=== PATIENT | female | born 1995 | race Caucasian/White ===

== ENCOUNTER 2019-02-25 12:23 | Outpatient (CLI) | payer OTHER, SELFPAY ==
[~2019-02-25] VITALS: Ht 157.5 cm; Wt 77.6 kg
[2019-02-25] MEDS ORDERED: FERR325T81 PO (12:41)
[2019-02-25] MEDS ORDERED: PRESCAP4 PO (12:41)
[2019-02-25 12:46] VITALS: BP 109/56
[2019-02-25] MEDS ORDERED: TERBUTALINE SULFATE 1 MG/ML VIAL (J3105) As Ordered ONE (13:08)
[2019-02-25] MEDS ORDERED: TERBUTALINE SULFATE 1 MG/ML VIAL (J3105) SC ONE (13:15)
[2019-02-25] MEDS ORDERED: LACTATED RINGER'S 1000 ML IV STA (14:41)
[2019-02-25 14:42] VITALS: BP 122/79
--- NOTE | 2019-02-25 14:50 | IPNPDOC ---
Text Note Date of Service The patient was seen on 02/25/19. NOTE ECV Note Ceci is a 23yo with SIUP at approx 37w1d by lmp c/w 9wk u/s who presents for scheduled ECV for breech presentation noted on office ultrasound at 36wk visit. She feels well today with no ctx/LOF/vaginal bleeding. Feels good movement. She has been NPO since before midnight. Patient counseled on r/b/a of ECV, discussed fully and consent form signed by patient and me. Consent placed in chart. All questions answered. 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 CNM Alec and I then externally rotated the fetus from breech to cephalic presentation. We tried forward roll first, but unsuccessful, so then attempted backward roll which worked to rotate the fetus. Ultrasound was used intermittently to demonstrate reassuring heart rate. Patient tolerated the procedure well. Reassuring heart rate after procedure. Assessment: Ceci is a 23yo with SIUP at approx 37w1d by lmp c/w 9wk u/s s/p successful ECV. Fetus now cephalic. Vitals wnl. Reassuring status. Plan: -Patient will have 1 hour of reassuring monitoring prior to discharge -1 liter bolus of LR IVF now to counter NPO status since last night -Regular diet for lunch now -Continue routine OB visits -Return precautions discussed Dr. Alejandra Martinez MD VS,Kartik, I+O VS, Allene, I+O Vital Signs Date Time Temp Pulse Resp B/P (MAP) Pulse Ox O2 Delivery O2 Flow Rate FiO2 02/25/19 12:46 97.2 83 16 109/56 (73) Alejandra Martinez MD Feb 25, 2019 14:08
== END 2019-02-25 16:00 | disposition home or self-care (01) ==
LOC: M LDO 12:23
PROVIDERS: ATTEND Advanced Practice Midwife
DX: O32.1XX0 Maternal care for breech presentation, not applicable or unspecified (principal); Z3A.37 37 weeks gestation of pregnancy
CPT/HCPCS: 59025; 59412; 76815; G0378; G0463; J3105

== ENCOUNTER 2019-03-24 06:09 | Inpatient (IN) | payer OTHER ==
[~2019-03-24] VITALS: Ht 157.5 cm; Wt 80.0 kg
[2019-03-24] VITALS (32 sets, daily range): BP systolic 96–143; BP diastolic 51–85
[~2019-03-24 06:09] MED LIST: FERR325T81 PO; PRESCAP4 PO
[2019-03-24] MEDS ORDERED: PRENTAB9 PO (06:25)
[2019-03-24] MEDS ORDERED: LACTATED RINGER'S 1000 ML IV STA (07:10)
[2019-03-24 07:12] LABS: HEMATOCRIT 42.9 % (36.0-47.0); HEMOGLOBIN 14.8 g/dl (12.0-15.5); MEAN CORPUSCULAR HEMOGLOBIN 30.3 pg (27.0-33.0); MEAN CORPUSCULAR HGB CONC 34.5 g/dl (32.0-36.5); MEAN CORPUSCULAR VOLUME 87.7 fl (80.0-96.0); PLATELET COUNT, AUTOMATED 242 10^3/uL (150-450); RED BLOOD COUNT 4.89 10^6/uL (4.00-5.40)
--- NOTE | 2019-03-24 07:48 | HPEPDOC ---
Obstetrical History & Physical General Date of Admission Mar 24, 2019 at 06:09 History of Present Illness 23 yo at 41+0 weeks gestation by LMP of 10Jun2018 c/w 9+4 week US on 13Aug2018 presents to L&D today for a scheduled IOL for late term . Ms. Avelar reports feeling well. She has had intermittent contractions but nothing significant. She denies any vaginal bleeding or leakage of fluid. She endorses excellent movement. Chief Complaint: Induction of labor Information Provided By: Patient Age: 23 : 3 Term: 1 Pre-term: 0 Abortions: 1 Livin Care Care: Good Care Dating Final EDC: Mar 17, 2019 Final EDC for Daily Update: Mar 17, 2019 Final EDC by: LMP (MARC set by LMP of 10Jun2018) LMP: Jun 10, 2018 1st Trimester Date: Aug 13, 2018 (9+4 week US on 13Aug2018 c/w LMP dating) Antepartum Course Diagnos(e)s Mild anemia --> ferrous sulfate Fam Hx of DM --> Normal glucose screening Fetus breech at 36 weeks --> s/p successful ECV on 25Feb2019 Past Medical History Past Obstetrical History : Past Obstetrical History: Multigravida ( X1 in 2016 at 41 weeks, pelvis proven to 9lbs) Type of Delivery: Spontaneous Vaginal Del. 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 Past Medical History Medical History Migraines Surgical History: Denies/None Family History Significant Family History: No pertinent family hx Social History Marital Status: Family situation: Spouse/partner home Psychosocial History: No pertinent psych hx * Smoker: non-smoker Alcohol: Denies Drugs: denies Imunizations Tdap status: current Influenza Status: current Allergies Coded Allergies: Shrimp (Verified Adverse Reaction, Intermediate, scratchy throat, 02/25/19) Medications Scheduled Ferrous Sulfate (Iron) 325 Mg Tablet, 1 TAB PO BID No.137/Iron/Folic Acd ( Vitamin Tablet) 1 Each Tablet, 1 TAB PO DAILY Vit C/Vit E AC/Lut/Copper/Zinc (Preservision Lutein Softgel) 1 Each Capsule, 1 CAP PO BID Physical Examination Physical Examination GENERAL: Alert and oriented times three. ABDOMEN: Gravid and non-tender to touch. FETUS: Is vertex (VTX) by sterile vaginal examination (SVE) EXTREMITIES: No edema. Vital Signs/I&O Vital Signs Date Time Temp Pulse Resp B/P (MAP) Pulse Ox O2 Delivery O2 Flow Rate FiO2 03/24/19 07:07 97.4 81 16 135/74 (94) Laboratory Data 24H LABS Laboratory Tests 2 03/24/19 06:16: Serology Scanned Report Hepatitis B Testing 03/24/19 06:55: Nucleated Red Blood Cells % (auto) 0.0 CBC/BMP Laboratory Tests 03/24/19 06:55 Red Blood Count 4.89, Mean Corpuscular Volume 87.7, Mean Corpuscular Hemoglobin 30.3, Mean Corpuscular Hemoglobin Concent 34.5, Red Cell Distribution Width 16.4 H Urine Culture: No Growth Pertinent Laboratoy Data Blood Type: O+ RBC Antibody Screen: Negative HIV: Negative Hepatitis B: Negative Hepatitis C: Unknown Rapid Plasma Reagin: Nonreactive Rubella: Immune Varicella: Immune Chlamydia/Gonorrhea: Negative Group B Streptococcus: Negative Quad Screen Test: Unknown Cystic Fibrosis: Unknown Glucose Tolerance Test: 109 Anatomy Ultrasound Placenta Location: Posterior Normal Anatomy: Yes Placenta Previa: No Steroid Therapy Steroid Therapy: No Vaginal Examination Dilation: 3 cm Effacement: 60% Station: -2 Cervical Consistency: Soft Cervical Position: Middle Presentation: Cephalic presentation Position: Vertex (occiput) Assessment Heart Rate (FHR): 140 Variability: Moderate Accelerations: Positive Decelerations: None Tocometer Contractions: Yes Frequency: irregular Duration: less than 60 seconds Strength: palpated as mild Assessment/Plan Assessment 23 yo at 41+0 weeks today presents to L&D for IOL for late term . Plan Admit to L&D for IOL. Apply IV fluids. GBS negative. Cervix favorable. Will use pitocin for IOL. Regular breakfast before start. Fetus cephalic by exam. Patient may have epidural when desired. Anticipate . All questions answered. DO ASIF Vasquez CHRISTOPHER J. DO Mar 24, 2019 07:48
[2019-03-24] MEDS ORDERED: OXYTOCIN DRIP 30 UNITS in IV 1 EA IV SCH ×2 (08:00→15:47)
[2019-03-24] MEDS ORDERED: LR 1,000 ML IV SCH (08:00)
[2019-03-24] MEDS ORDERED: FENTANYL 2MCG/ML ROPIVACAINE 0.2% IN 0.9% NACL 100ML IVBAG As Ordered ONE (09:53)
[2019-03-24] MEDS ORDERED: ONDANSETRON 4MG/2ML VIAL (J2405) IV PRN (11:00)
[2019-03-24] MEDS ORDERED: NALOXONE INJ 0.4 MG/1 ML VIAL (J2310) IV PRN (11:00)
[2019-03-24] MEDS ORDERED: EPIDURAL COMMENT XX SCH (11:00)
[2019-03-24] MEDS ORDERED: LACTATED RINGER'S 1000 ML IV PRN (11:00)
[2019-03-24] MEDS ORDERED: FENTANYL/ROPIVACAINE/NACL BAG 100 ML EPIDURAL SCH (11:00)
[2019-03-24] MEDS ORDERED: ePHEDrine SULFATE 25 MG/5 ML(5MG/ML) SYRINGE IV PRN (11:00)
[2019-03-24] MEDS ORDERED: REFRIGERATOR IV KEYS XX PRN (11:00)
[2019-03-24] MEDS ORDERED: EPIDURAL/PCA KEYS XX PRN (11:00)
[2019-03-24] MEDS ORDERED: diphenhydrAMINE INJ 50MG/ML VIAL (J1200) IV PRN (11:00)
--- NOTE | 2019-03-24 14:30 | IPNPDOC ---
Text Note Date of Service The patient was seen on 03/24/19. NOTE Presented to room for assessment of progress. Patient comfortable with epidural in place. Cervix: C/C/+1. bulging bag of water. AROM performed productive of clear fluid. FHR Cat I. Pitocin at 8mU. Will begin pushing soon. DO Abhinav VS,Kartik, I+O VS, Kartik, I+O Laboratory Tests 03/24/19 06:55 Red Blood Count 4.89, Mean Corpuscular Volume 87.7, Mean Corpuscular Hemoglobin 30.3, Mean Corpuscular Hemoglobin Concent 34.5, Red Cell Distribution Width 16.4 H Vital Signs Date Time Temp Pulse Resp B/P (MAP) Pulse Ox O2 Delivery O2 Flow Rate FiO2 03/24/19 12:40 79 96/52 (67) 03/24/19 11:23 97.1 18 JUAN GOLD DO Mar 24, 2019 14:30
[2019-03-24 15:48] LABS: CORD GAS HCO3 A 20.1 MEQ/L; CORD GAS O2 SAT A 47.5 %; CORD GAS PCO2 A 55.9 mmHg; CORD GAS PH A 7.173 UNITS; CORD GAS PO2 A 26.7 mmHg; CORD GAS SBC A 16.3 MEQ/L; CORD GAS TCO2 A 21.8 MEQ/L
[2019-03-24 15:51] LABS: CORD GAS ABE V -6.5; CORD GAS HCO3 V 22.5 MEQ/L; CORD GAS O2 SAT V 57.5 %; CORD GAS PCO2 V 58.1 mmHg; CORD GAS PH V 7.205 UNITS; CORD GAS PO2 V 30.3 mmHg; CORD GAS SBC V 18.3 MEQ/L; CORD GAS TCO2 V 24.2 MEQ/L
--- NOTE | 2019-03-24 15:57 | DNPDOC ---
[facility] Delivery Note Delivery Note DATE OF DELIVERY: 24Mar2019 at ~1515 PREDELIVERY DIAGNOSIS: 41+0 weeks gestation and IOL for late term POST DELIVERY DIAGNOSIS: Delivered. PROCEDURE: Spontaneous vaginal delivery FLOOR MOLDER: Dr. La ANESTHESIA: Epidural ESTIMATED BLOOD LOSS: 300 mL. FINDINGS: Viable female , 10lbs 5oz (4670 grams), Apgars 8/9, tight nuchal cord X2 DELIVERY SUMMARY: Presented to room to start pushing. head was at +2 station. FHR was in the 90s. She began pushing and with excellent effort her delivered. presentation was DREW with restitution to ROT. There was a tight, double nuchal cord that was delivered through and reduced manually. The left anterior shoulder delivered with gentle traction followed easily by the remainder of the body. The infant was dried and stimulated on the field and a bulb suction was used. The was then placed on the maternal abdomen and cried vigorously. The three vessel cord was then clamped and cut by me after appropriate time delay. Cord blood gases were drawn. Third stage was then completed with gentle traction on the cord and it was productive of an intact placenta. The uterine fundus was firmed with massage and pitocin was administered via IV bolus. Inspection of the vagina, perineum, and cervix revealed a midline 1st degree perineal laceration. This was repaired in the usual fashion with 3-0 vicryl suture. There was excellent cosmesis and hemostasis after the repair. The fundus was palpated again and was firm. Sponge, instrument, and needle counts were correct X2. Mother and infant stable when I left the room. DO ASIF Vasquez CHRISTOPHER J. DO Mar 24, 2019 15:57
[2019-03-24] MEDS ORDERED: MEASLES,MUMPS,RUBELLA VACCINE INJ (MMR-II) (90707) SC SCH (16:00)
[2019-03-24] MEDS ORDERED: RHOGAM 300 MCG (1500 IU) INJ (J2790) IM SCH (16:00)
[2019-03-24] MEDS ORDERED: ACETAMINOPHEN 500 MG TAB PO PRN (16:00)
[2019-03-24] MEDS ORDERED: DOCUSATE SODIUM 100 MG CAP PO PRN (16:00)
[2019-03-24] MEDS ORDERED: ACETAMINOPHEN TAB 650MG DOSE (2X325MG) PO PRN (16:00)
[2019-03-24] MEDS ORDERED: DIBUCAINE 1% OINTMENT 30GM TOP PRN (16:00)
[2019-03-24] MEDS ORDERED: IBUPROFEN 600 MG TAB PO PRN (16:00)
[2019-03-24] MEDS ORDERED: PROMETHAZINE 25 MG TAB PO PRN (16:00)
[2019-03-24] MEDS: IBUPROFEN 800 MG TAB PO PRN (20:20)
[2019-03-25] MEDS: IBUPROFEN 800 MG TAB PO PRN (05:24)
[2019-03-25 05:59] VITALS: BP 115/69
[2019-03-25] MEDS: PRENATAL VITAMINS CHEWABLE TABLET PO SCH (09:03)
[2019-03-25 17:58] VITALS: BP 113/54
[2019-03-26 06:00] VITALS: BP 102/57
--- NOTE | 2019-03-26 07:48 | IPNPDOC ---
Progress Note Date of Service: Mar 26, 2019 Day#: 2 Progress Note SUBJECT: Pt is a [23]-year-old [3] now Para [2]-[0]-[1]-[2] status post uncomplicated spontaneous vaginal delivery at [41]-[1]/7 weeks' at on [24 Mar 2019] of a [female] [10] pounds [5] ounces with post vaginal laceration and repair, doing well day # [2]. She has been ambulating, voiding spontaneously without issue and tolerating regular diet. Breast feeding without issue. Reports lochia is [like a normal period]. Patient is ambulating well. [Reports some cramping with . Denies any pain. Voiding and stooling without difficulty]. OBJECTIVE: VITAL SIGNS: Within normal limits, afebrile. Alert and oriented times three. Breath sounds clear to auscultation. Heart rate: Regular rate and rhythm, no murmurs, rubs or gallops. Abdomen: Fundus firm at U-3. Soft, NTTP. ASSESSMENT: [23]-year-old [3] now Para [2]-[0]-[1]-[2] status post uncomplicated spontaneous vaginal delivery after presenting for IO labor with , delivered [41]-[0]/7 weeks', doing well on day [2]. Vitals within normal limits, afebrile, hemodynamically stable with no evidence of infection. PLAN: 1. Discharge to home today. 2. Tylenol and Motrin for pain. Meds will be available at [facility] pharmacy 3. Encourage breast feeding and ambulation. 4. condoms for contraception for now, will f/u visit. 5. Routine PP visit in 6-8 weeks in clinic. 6. Discussed return precautions at length. VS, I&O, 24H, Fishbone Vital Signs/I&O Vital Signs Date Time Temp Pulse Resp B/P (MAP) Pulse Ox O2 Delivery O2 Flow Rate FiO2 03/26/19 06:00 98.6 70 18 102/57 (72) 98 I&O- Last 24 Hours up to 6 AM 03/26/19 06:00 Intake Total 1000 ml Balance 1000 ml JUAN CHRISTOPHER MD Mar 26, 2019 07:48
--- NOTE | 2019-03-26 07:58 | OBDS ---
[facility] Obstetrical Discharge Sum. Obstetrical Discharge Summary Fire Control Assistant/Provider: JUAN GOLD DO Date: Mar 26, 2019 Time: 12:00 : 3 Term: 2 Pre-term: 0 Abortions: 1 Livin VDRL: Non-Reactive Rh: Positive Rubella: Immune Labor s/p uncomplicated at 41w0d after IOL for late term gestation Infant Sex: Female Weight: pounds, ounces Anesthesia: Regional Anesthesia Episiotomy 1mLL A/P, Post Course List any complications Admission diagnosis: later term gestation, 41week 0 days. Discharge diagnosis: same as above Condition at Discharge: [stable] Discharge Instructions: [standard ] Activity: [Regular, vaginal rest for 6 weeks, increase activity as tolerated. ] Diet: [Regular] Medications: tylenol 1-2 tabs by mouth as needed every 4-6 hours for pain; Motrin 800mg 1 tab by mouth as needed every 8 hours for pain take with food/milk. Colace 1-2 tablets as needed 2xs a day to prevent constipation. Dibucaine-apply topically as needed to perineum for discomfort relief. Follow-up: [6-8 weeks visit in [facility] [facility] clinic] Other:N/A JUAN CHRISTOPHER MD Mar 26, 2019 07:58
[2019-03-26] MEDS: PRENATAL VITAMINS CHEWABLE TABLET PO SCH (08:22)
== END 2019-03-26 12:10 | disposition home or self-care (01) | DRG 807 ==
LOC: M LDI 06:09 → M OBS 17:41
PROVIDERS: ADMIT Obstetrics & Gynecology; ATTEND Obstetrics & Gynecology
PROC: 10E0XZZ Delivery of Products of Conception, External Approach (ICD-10-PCS; principal; 2019-03-24)
PROC: 3E033VJ Introduction of Other Hormone into Peripheral Vein, Percutaneous Approach (ICD-10-PCS; 2019-03-24)
PROC: 10907ZC Drainage of Amniotic Fluid, Therapeutic from Products of Conception, Via Natural or Artificial Opening (ICD-10-PCS; 2019-03-24)
PROC: 0HQ9XZZ Repair Perineum Skin, External Approach (ICD-10-PCS; 2019-03-24)
DX: O48.0 Post-term pregnancy (principal); Z37.0 Single live birth; Z3A.41 41 weeks gestation of pregnancy; O69.1XX0 Labor and delivery complicated by cord around neck, with compression, not applicable or unspecified; O70.0 First degree perineal laceration during delivery; O99.02 Anemia complicating childbirth; D64.9 Anemia, unspecified